=== PATIENT | female | born 2000 | race Two or more races ===

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

== ENCOUNTER 2019-06-12 18:23 | Emergency (ER) | payer OTHER ==
[2019-06-12 18:47] VITALS: BP 112/67; PULSE 64; TEMP 97.9; BMI 22.6
--- NOTE | 2019-06-12 19:12 | PDOC ---
Suture Removal/Wound Check HPI - History of Present Illness Stated Complaint: STITCHES REMOVAL History Source: Yes: Patient Exam Limitations: Yes: No Limitations Past History - Past Medical History Allergies/Adverse Reactions: Allergies Allergy/AdvReac Type Severity Reaction Status Date / Time No Known Allergies Allergy Verified 06/12/19 18:47 Home Medications: Ambulatory Orders Risperidone [Risperidone Odt] 0.5 mg PO HS 07/26/14 Risperidone [Risperidone Odt] 1 mg PO BID 07/26/14 Topiramate [Topamax -] 50 mg PO BID 07/26/14 traZODone HCL [Desyrel -] 100 mg PO HS 07/26/14 Fluticasone Prop 0.05% Nasal [Flonase -] 1 - 2 spray NS DAILY #1 spray.pump NS 08/19/14 Amoxicillin/Potassium Clav [Augmentin 500-125 Tablet] 1 each PO TID #21 tablet NS 09/06/14 Asthma: Yes COPD: No Psychiatric Problems: Yes (oppositional ODD) - Immunization History Immunization Up to Date: Yes - Psycho Social/Smoking Cessation Hx Smoking History: Never smoked Have you smoked in the past 12 months: No Hx Alcohol Use: No Drug/Substance Use Hx: No Substance Use Type: None Suture Removal/Wound Check PE - Physical Exam Laceration/Wound Check Symptoms: reports: None, Improved, Resolved. denies: Pain, Fever, Chills, Redness, Discharge, Bleeding Location of Laceration/Wound: left: Arm (healed lac along L lateral elbow with 10 stitches, no drainage, no erythema), Thigh (healed lac along L lateral thigh with 3 stitches, no drainage, no erythema) *Physical Exam - Vital Signs Last Vital Signs Temp Pulse Resp BP Pulse Ox 97.9 F 64 16 112/67 99 06/12/19 18:45 06/12/19 18:45 06/12/19 18:45 06/12/19 18:45 06/12/19 18:45 Medical Decision Making - Medical Decision Making 18 y/o F presents for suture removal. Patient had stitches placed along LUE and LLE at [facility] 16 days ago. Patient was told to have stitches removed in 16 days. Patient preferred to come here for stitch removal as this hospital is closer. Denies fever, redness, discharge. Lac site healed well stitches removed 06/12/19 18:52 Discharge - Discharge Information Problems reviewed: Yes Clinical Impression/Diagnosis: Visit for suture removal Condition: Stable Disposition: HOME - Admission No - Additional Discharge Information Prescription Drug Monitoring Program (I-STOP) results: I-STOP not reviewed - Follow up/Referral - Patient Discharge Instructions Patient Printed Discharge Instructions: DI for Suture Removal - Post Discharge Activity
== END 2019-06-12 19:13 | disposition home or self-care (01) ==
LOC: JER 18:23 → JERFT 18:23 → JER 19:13
DX: Z48.02 Encounter for removal of sutures (principal)
CPT/HCPCS: 99281-25

== ENCOUNTER 2020-12-07 14:06 | Emergency (ER) | payer OTHER ==
[2020-12-07 14:15] VITALS: BP 107/55; PULSE 82; TEMP 99; BMI 23.3
== END 2020-12-07 14:40 | disposition left against medical advice (07) ==
LOC: JER 14:06 → JERFT 14:06
DX: S41.112A Laceration without foreign body of left upper arm, initial encounter (principal)
CPT/HCPCS: 99281-25

== ENCOUNTER 2021-05-22 17:16 | Emergency (ER) | payer OTHER ==
[2021-05-22 17:37] VITALS: BP 113/70; PULSE 67; TEMP 98; BMI 24.0
== END 2021-05-22 18:23 | disposition home or self-care (01) ==
LOC: JERFT 17:16
DX: S51.812A Laceration without foreign body of left forearm, initial encounter (principal); S81.012A Laceration without foreign body, left knee, initial encounter; Z48.02 Encounter for removal of sutures
CPT/HCPCS: 99281-25

== ENCOUNTER 2022-03-21 14:16 | Emergency (ER) | payer OTHER ==
[2022-03-21 14:36] VITALS: RESP 20; TEMP 98.8; BMI 25.0
[2022-03-21] MEDS ORDERED: LIDOCAINE 5% TOPICAL PATCH TP ONE (16:33)
[2022-03-21] MEDS ORDERED: METHOCARBAMOL 500 MG TABLET PO ONE (16:33)
[2022-03-21] MEDS ORDERED: ACETAMINOPHEN 500 MG TABLET (FP) PO ONE (16:33)
[2022-03-21] MEDS ORDERED: LIDOCAINE 5% TOPICAL PATCH ONE (16:56)
[2022-03-21] MEDS ORDERED: METHOCARBAMOL 500 MG TABLET ONE (16:57)
[2022-03-21] MEDS ORDERED: ACETAMINOPHEN 500 MG TABLET (FP) ONE (16:57)
[2022-03-21] MEDS ORDERED: ONDANSETRON *ODT* 4 MG TABLET SL ONE (18:52)
[2022-03-21 20:55] VITALS: BP 119/71; PULSE 79
== END 2022-03-21 21:00 | disposition left against medical advice (07) ==
LOC: JERFT 14:16
DX: M54.50 Low back pain, unspecified (principal); M54.2 Cervicalgia; V43.52XA Car driver injured in collision with other type car in traffic accident, initial encounter
CPT/HCPCS: 72070-TC-FY; 72100-TC-FY; 99284-25